=== PATIENT | male | born 1990 | race American Indian/Alaskan Native ===

== ENCOUNTER 2020-12-17 09:29 | Emergency (ER) | payer SELFPAY ==
[2020-12-17 09:45] VITALS: BP 138/91
--- NOTE | 2020-12-17 10:05 | Emergency Department Report ---
Minor Respiratory - HPI Chief Complaint: Headache Stated Complaint: HEADACHES Time Seen by Provider: 12/17/20 10:01 Duration: 3 Days Pain Location: Facial, Throat, Nose, Ear Severity: mild Minor Respiratory: Yes Rhinorrhea, Yes Sore Throat, Yes Able to Tolerate Fluids, Yes Ear Pain, No Cough, No Sick Contacts, No Hemoptysis, No Chest Pain, No Shortness of Breath, No Fever Other History: Patient is a 30-year-old that comes to the emergency room with a left-sided headache, left subconjunctival hemorrhage after sneezing, and ear pressure. He denies shortness of breath or chest pain. He denies fever or chills. Patient is ambulatory nontoxic and [id number] on arrival to ER. ED Review of Systems ROS: Stated complaint: HEADACHES Other details as noted in HPI Comment: All other systems reviewed and negative ED Past Medical Hx - Past Medical History Previous Medical History?: Yes Hx Hypertension: Yes - Surgical History Past Surgical History?: No - Family History Family history: no significant - Social History Smoking Status: Never Smoker Substance Use Type: Alcohol - Medications Home Medications: Home Medications Medication Instructions Recorded Confirmed Last Taken Type Amoxicillin [Trimox CAP] 500 mg PO BID #20 capsule 12/17/20 Unknown Rx Fluticasone [Flonase] 1 spray NS QDAY #1 bottle 12/17/20 Unknown Rx predniSONE [Deltasone] 20 mg PO DAILY #5 tablet 12/17/20 Unknown Rx Minor Respiratory Exam - Exam General: Vital signs noted. No distress. Alert and acting appropriately. HEENT: Yes Pharyngeal Erythema, Yes Moist Mucous Membranes, Yes Frontal Tenderness, Yes Maxillary Tenderness, No Pharyngeal Exudates, No Rhinorrhea, No Conjuctival Injection Ear: Left TM Erythema, Neither TM Bulge, Neither EAC Discharge Neck: Yes Supple, No Adenopathy Lungs: Yes Good Air Exchange, No Wheezes, No Ronchi, No Stridor, No Cough, No Labored Respirations, No Retractions, No Use of Accessory Muscles, No Other Abnormal Lung Sounds Heart: Yes Regular, No Murmur Abdomen: Yes Normal Bowel Sounds, No Tenderness, No Peritoneal Signs Skin: No Rash, No Edema Neurologic: Alert and oriented, no deficits. Musculoskeletal: Unremarkable. ED Course Vital Signs 12/17/20 09:44 Temperature 98.6 F Pulse Rate 79 Respiratory 20 Rate Blood Pressure 138/91 O2 Sat by Pulse 99 Oximetry ED Medical Decision Making - Medical Decision Making Vital Signs 12/17/20 09:44 Temperature 98.6 F Pulse Rate 79 Respiratory 20 Rate Blood Pressure 138/91 O2 Sat by Pulse 99 Oximetry Patient reports and his exam is consistent with sinusitis. He has maxillary and frontal left-sided tenderness. No cough or shortness of breath. No chest pain. Vital signs normal. No fever or chills. Taking p.o. Ambulatory [id number] in triage. Patient be discharged home with discharge plan of care including medications, follow-up and activity and diet. He verbalizes understanding of discharge plan of care. - Differential Diagnosis uri Critical care attestation.: If time is entered above; I have spent that time in minutes in the direct care of this critically ill patient, excluding procedure time. ED Disposition Clinical Impression: Sinusitis, Subconjunctival hemorrhage Disposition: TO HOME OR SELFCARE Is pt being admited?: No Does the pt Need Aspirin: No Condition: Stable Instructions: Sinusitis, Adult, [id number] Additional Instructions: stay well hydrated do not rub eye meds as ordered motrin or tylenol for pain follow up with pcp next week referral below Prescriptions: predniSONE [Deltasone] 20 mg PO DAILY #5 tablet Fluticasone [Flonase] 1 spray NS QDAY #1 bottle Amoxicillin [Trimox CAP] 500 mg PO BID #20 capsule Referrals: CHIQUI ARGUETA MD [Staff Physician] - 3-5 Days Forms: Work/School Release Form(ED) Time of Disposition: 10:04
== END 2020-12-17 10:05 | disposition home or self-care (01) ==
LOC: ED 09:29
DX: H11.30 Conjunctival hemorrhage, unspecified eye (principal); J32.9 Chronic sinusitis, unspecified; I10 Essential (primary) hypertension; Z79.899 Other long term (current) drug therapy
CPT/HCPCS: 99282

== ENCOUNTER 2021-04-09 10:14 | Emergency (ER) | payer MEDICAID ==
[2021-04-09 10:20] VITALS: BP 141/94
--- NOTE | 2021-04-09 10:29 | Emergency Department Report ---
ED General Adult HPI - General Chief complaint: Headache Stated complaint: POSSIBLE SINUS INFECTION Time Seen by Provider: 04/09/21 10:19 Source: patient Mode of arrival: Ambulatory Limitations: No Limitations - History of Present Illness Initial comments: 31-year-old male patient with history of hypertension presents emergency department with complaints of sinus pressure and nasal congestion for approximately a week and a half. Patient experienced similar symptoms a couple of months ago. No known sick contacts. No current steroid or antibiotic use. Patient has been taking Sudafed with limited relief. He does not have a primary care provider. Denies fever, chills, sore throat, cough, neck stiffness, shortness of breath, vomiting. Denies all other complaints at this time. - Related Data Previous Rx's Medication Instructions Recorded Last Taken Type Amoxicillin [Trimox CAP] 500 mg PO BID #20 capsule 12/17/20 Unknown Rx Fluticasone [Flonase] 1 spray NS QDAY #1 bottle 12/17/20 Unknown Rx predniSONE [Deltasone] 20 mg PO DAILY #5 tablet 12/17/20 Unknown Rx Fluticasone [Flonase] 1 spray NS QDAY #1 bottle 04/09/21 Unknown Rx guaiFENesin/DEXTROMETHORPHAN 1 each PO Q6H #20 capsule 04/09/21 Unknown Rx [Coricidin Hbp Chest Harvey-Cough] Allergies Allergy/AdvReac Type Severity Reaction Status Date / Time No Known Allergies Allergy Verified 12/17/20 09:40 ED Review of Systems ROS: Stated complaint: POSSIBLE SINUS INFECTION Other details as noted in HPI Other: GENERAL: Negative for fever. ENT: Positive for sinus pressure and nasal congestion. CARDIOVASCULAR: Negative for chest pain. PULMONARY: Negative for shortness of breath. GASTROINTESTINAL: Negative for abdominal pain. MUSCULOSKELETAL: Negative for back pain. NEUROLOGICAL: Negative for headache. INTEGUMENTARY: Negative for rash. ED Past Medical Hx - Past Medical History Previous Medical History?: Yes Hx Hypertension: Yes - Surgical History Additional Surgical History: APPY - Social History Smoking Status: Never Smoker Substance Use Type: Alcohol - Medications Home Medications: Home Medications Medication Instructions Recorded Confirmed Last Taken Type Amoxicillin [Trimox CAP] 500 mg PO BID #20 capsule 12/17/20 Unknown Rx Fluticasone [Flonase] 1 spray NS QDAY #1 bottle 12/17/20 Unknown Rx predniSONE [Deltasone] 20 mg PO DAILY #5 tablet 12/17/20 Unknown Rx Fluticasone [Flonase] 1 spray NS QDAY #1 bottle 04/09/21 Unknown Rx guaiFENesin/DEXTROMETHORPHAN 1 each PO Q6H #20 capsule 04/09/21 Unknown Rx [Coricidin Hbp Chest Harvey-Cough] ED Physical Exam - General Limitations: No Limitations - Other Other exam information: General: Awake and alert. No acute distress. Head: Atraumatic, normocephalic. Bilateral maxillary sinus tenderness. Eyes: EOMI. Pupils are equal and round. Normal sclera and conjunctiva. ENT: Oral mucosa is moist. Normal pharyngeal exam. Neck: Supple. No lymphadenopathy. Pulmonary: No respiratory distress. Clear to auscultation bilaterally. Cardiac: Tachycardic. Pulses are palpable and equal bilaterally. No lower extremity cyanosis or edema. Skin: Warm and dry. No rashes. Abdomen: Soft, non-tender, non-protuberant. No guarding, rigidity, or rebound. Bowel sounds are normal. No organomegaly or masses noted. Back: Normal alignment. No CVA tenderness. Extremities: Symmetrical. Full range of motion intact. Neurological: Alert and oriented, appropriately interactive, no focal deficits. Psych: Cooperative. Appropriate mood and affect. Speech is evenly metered. Thoughts are logically construed. ED Course Vital Signs 04/09/21 10:19 Temperature 98.9 F Pulse Rate 107 H Respiratory 18 Rate Blood Pressure 141/94 O2 Sat by Pulse 98 Oximetry ED Medical Decision Making - Medical Decision Making Differential diagnosis including but not limited to: sinusitis, pharyngitis, periorbital/orbital cellulitis, otitis media Patient presents emergency department with complaints of sinus pressure and nasal congestion. He is afebrile. Minimally tachycardic on arrival; patient states he has been taking Sudafed for symptomatic relief. No hypoxia, no respiratory distress. No clinical evidence to suggest airway obstruction or systemic bacterial infection warranting further diagnostic work-up on an emergent basis at this time. Based on symptom duration of less than 3 weeks, patient does not meet criteria for antibiotics at this time. He will be discharged home with appropriate symptomatic treatment and advised to follow-up with primary care provider. Advised to discontinue Sudafed in the setting of hypertension. Patient expressed understanding and is agreeable to plan of care. Disease transmission precautions discussed. Strict return precautions provided. History, exam, diagnostic testing, and current condition do not suggest worrisome pathology to warrant further testing, continued ED treatment, admission, or surgical evaluation at this point. Given the low probability of a significant medical illness, it would be more likely to result in harm than benefit to perform further testing at this stage. Discussed findings, presumptive diagnosis, need for follow-up and specific signs/symptoms that should prompt immediate return to the emergency department. Instructions were explained in detail to the patient in addition to giving written discharge information. Patient expressed understanding and was given the opportunity to ask questions, all of which were satisfactorily answered prior to discharge home. Critical care attestation.: If time is entered above; I have spent that time in minutes in the direct care of this critically ill patient, excluding procedure time. ED Disposition Clinical Impression: Maxillary sinusitis Qualifiers: Chronicity: acute Recurrence: recurrent Qualified Code(s): J01.01 - Acute recurrent maxillary sinusitis Disposition: TO HOME OR SELFCARE Is pt being admited?: No Does the pt Need Aspirin: No Condition: Stable Instructions: Sinusitis, Adult, [id number] Additional Instructions: Take Tylenol every 4 hours and Motrin every 8 hours as needed for pain. Take Coricidin as directed. Use Flonase as directed. Rest. Drink plenty fluids. Wash hands frequently to prevent disease transmission. Do not share food or drinks with others. Follow-up with primary care provider this week. Call today to schedule appointment. See referral information below. Return to the emergency department immediately for new or worsening symptoms. Prescriptions: guaiFENesin/DEXTROMETHORPHAN [Coricidin Hbp Chest Harvey-Cough] 1 each PO Q6H #20 capsule Fluticasone [Flonase] 1 spray NS QDAY #1 bottle Referrals: CHIQUI ARGUETA MD [Staff Physician] - 3-5 Days [facility] [Provider Group] - 3-5 Days [facility] [Outside] - 3-5 Days [facility] [Outside] - 3-5 Days [facility] [Outside] - 3-5 Days Time of Disposition: 10:29
== END 2021-04-09 11:10 | disposition home or self-care (01) ==
LOC: ED 10:14
DX: J32.0 Chronic maxillary sinusitis (principal); I10 Essential (primary) hypertension; Z98.890 Other specified postprocedural states; Z79.899 Other long term (current) drug therapy
CPT/HCPCS: 99281

== ENCOUNTER 2021-05-12 16:08 | Emergency (ER) | payer SELFPAY ==
[2021-05-12 18:21] VITALS: BP 119/93
== END 2021-05-12 19:45 | disposition left against medical advice (07) ==
LOC: ED 16:08
DX: R09.81 Nasal congestion (principal); Z53.21 Procedure and treatment not carried out due to patient leaving prior to being seen by health care provider

== ENCOUNTER 2021-05-15 07:46 | Emergency (ER) | payer MEDICAID ==
[2021-05-15 07:53] VITALS: BP 136/100
--- NOTE | 2021-05-15 09:15 | Emergency Department Report ---
Minor Respiratory - HPI Chief Complaint: Upper Respiratory Infection Stated Complaint: NASAL PAIN/CONGESTION Time Seen by Provider: 05/15/21 08:42 Duration: 2 weeks Pain Location: Facial Severity: mild Minor Respiratory: Yes Rhinorrhea, Yes Able to Tolerate Fluids, No Sore Throat, No Ear Pain, No Cough, No Sick Contacts, No Hemoptysis, No Chest Pain, No Shortness of Breath, No Fever Other History: This is a 31-year-old male nontoxic, well nourished in appearance, no acute signs of distress presents to the ED with c/o of acute on chronic intermittent maxillary sinus pain, rhinorrhea, nasal congestion x2 2 weeks. Patient denies any cough. Denies any other symptoms or complaints. Patient denies any sick contact. Patient denies any recent travels, long car, recent hospital stays. Patient denies any calf pain or calf tenderness. Patient denies any chest pain, short of breath, fever, chills, nausea, vomiting, hemoptysis, numbness, tingling, headache or stiff neck. Denies any allergies. Past medical history includes hypertension which he says does not take medication for but does lifestyle modification. ED Review of Systems ROS: Stated complaint: NASAL PAIN/CONGESTION Other details as noted in HPI Comment: All other systems reviewed and negative Constitutional: denies: chills, fever Eyes: denies: eye pain, eye discharge, vision change ENT: congestion. denies: ear pain, throat pain Respiratory: denies: cough, shortness of breath, wheezing Cardiovascular: denies: chest pain, palpitations Endocrine: no symptoms reported Gastrointestinal: denies: abdominal pain, nausea, diarrhea Genitourinary: denies: urgency, dysuria Musculoskeletal: denies: back pain, joint swelling, arthralgia Skin: denies: rash, lesions Neurological: denies: headache, weakness, paresthesias Psychiatric: denies: anxiety, depression Hematological/Lymphatic: denies: easy bleeding, easy bruising ED Past Medical Hx - Past Medical History Hx Hypertension: Yes - Surgical History Additional Surgical History: APPY - Social History Smoking Status: Never Smoker Substance Use Type: Alcohol - Medications Home Medications: Home Medications Medication Instructions Recorded Confirmed Last Taken Type Amoxicillin [Trimox CAP] 500 mg PO BID #20 capsule 12/17/20 Unknown Rx Fluticasone [Flonase] 1 spray NS QDAY #1 bottle 12/17/20 Unknown Rx predniSONE [Deltasone] 20 mg PO DAILY #5 tablet 12/17/20 Unknown Rx Fluticasone [Flonase] 1 spray NS QDAY #1 bottle 04/09/21 Unknown Rx guaiFENesin/DEXTROMETHORPHAN 1 each PO Q6H #20 capsule 04/09/21 Unknown Rx [Coricidin Hbp Chest Harvey-Cough] Amoxicillin/K Clav Tab [Augmentin 1 tab PO Q12HR #20 tab 05/15/21 Unknown Rx 875 mg] Minor Respiratory Exam - Exam General: Vital signs noted. No distress. Alert and acting appropriately. Positive sinus tenderness noted. HEENT: Yes Moist Mucous Membranes, Yes Rhinorrhea, No Pharyngeal Erythema, No Pharyngeal Exudates, No Conjuctival Injection, No Frontal Tenderness, No Maxillary Tenderness Ear: Neither TM Bulge, Neither TM Erythema, Neither EAC Pain, Neither EAC Discharge Neck: Yes Supple, No Adenopathy Lungs: Yes Good Air Exchange, No Wheezes, No Ronchi, No Stridor, No Cough, No Labored Respirations, No Retractions, No Use of Accessory Muscles, No Other Abnormal Lung Sounds Heart: Yes Regular, No Murmur Abdomen: Yes Normal Bowel Sounds, No Tenderness, No Peritoneal Signs Skin: No Rash, No Edema Neurologic: Alert and oriented, no deficits. Musculoskeletal: Unremarkable. ED Course Vital Signs 05/15/21 07:53 Temperature 98.5 F Pulse Rate 88 Respiratory 20 Rate Blood Pressure 136/100 O2 Sat by Pulse 99 Oximetry - Reevaluation(s) Reevaluation #1: 05/15/21 09:20 Patient is speaking in full sentences with no signs of distress noted. ED Medical Decision Making - Medical Decision Making This is a 31-year-old male that presents with sinusitis. Patient is stable and was examined by me. Patient will be treated with Augmentin. Patient was instructed to keep a daily diary of blood pressure and presented to primary care doctor for possible blood pressure medication if not controlled with lifestyle modification. According to ACEP: (1) in ED patients with asymptomatic markedly elevated blood pressure, routine screening for acute target organ injury (eg, serum creatinine, urinalysis, ECG) is not required. (1) In patients with asymptomatic markedly elevated blood pressure, routine ED medical intervention is not required. Vitals stable. Patient is nonfebrile and normal heart rate. Patient was instructed Follow-up with a primary care doctor in 3-5 days or if symptoms worsen and continue return to emergency room as soon as possible. At time time of discharge, the patient does not seem toxic or ill in appearance. No acute signs of distress noted. Patient agrees to discharge treatment plan of care. No further questions noted by the patient. Critical care attestation.: If time is entered above; I have spent that time in minutes in the direct care of this critically ill patient, excluding procedure time. ED Disposition Clinical Impression: Sinusitis Qualifiers: Sinusitis location: maxillary Chronicity: subacute Qualified Code(s): J01.00 - Acute maxillary sinusitis, unspecified Disposition: TO HOME OR SELFCARE Is pt being admited?: No Does the pt Need Aspirin: No Condition: Stable Instructions: Sinusitis, Adult, [id number] Additional Instructions: Follow-up with a primary care doctor in 3-5 days or if symptoms worsen and continue return to emergency room as soon as possible. Prescriptions: Amoxicillin/K Clav Tab [Augmentin 875 mg] 1 tab PO Q12HR #20 tab Referrals: PRIMARY CAREMD [Referring] - 3-5 Days CHIQUI ARGUETA MD [Staff Physician] - 3-5 Days Forms: Work/School Release Form(ED) Time of Disposition: 09:40
== END 2021-05-15 10:04 | disposition home or self-care (01) ==
LOC: ED 07:46
DX: J01.00 Acute maxillary sinusitis, unspecified (principal); I10 Essential (primary) hypertension; Z79.899 Other long term (current) drug therapy
CPT/HCPCS: 99282

== ENCOUNTER 2021-10-27 08:47 | Emergency (ER) | payer MEDICAID ==
[2021-10-27 08:52] VITALS: BP 119/82
--- NOTE | 2021-10-27 10:57 | Emergency Department Report ---
- General Chief Complaint: Sore Throat Stated Complaint: ST, Watery Stool Time Seen by Provider: 10/27/21 10:27 Source: patient Mode of arrival: Ambulatory Limitations: No Limitations - History of Present Illness Initial Comments: Patient is a 31-year-old female presents emergency room with complaints of sore throat that began 3 days ago. Patient has associated cough with clear mucus production, congestion, voice hoarseness. She denies any fever, vomiting, shortness of breath, difficulty swallowing, chest pain. Past medical history of hyperthyroidism. No allergies to medications. - Related Data Previous Rx's Medication Instructions Recorded Last Taken Type Amoxicillin [Trimox CAP] 500 mg PO BID #20 capsule 12/17/20 Unknown Rx Fluticasone [Flonase] 1 spray NS QDAY #1 bottle 12/17/20 Unknown Rx predniSONE [Deltasone] 20 mg PO DAILY #5 tablet 12/17/20 Unknown Rx Fluticasone [Flonase] 1 spray NS QDAY #1 bottle 04/09/21 Unknown Rx guaiFENesin/DEXTROMETHORPHAN 1 each PO Q6H #20 capsule 04/09/21 Unknown Rx [Coricidin Hbp Chest Harvey-Cough] Amoxicillin/K Clav Tab [Augmentin 1 tab PO Q12HR #20 tab 05/15/21 Unknown Rx 875 mg] Allergies Allergy/AdvReac Type Severity Reaction Status Date / Time No Known Allergies Allergy Verified 05/15/21 07:50 ED Review of Systems ROS: Stated complaint: ST, Watery Stool Other details as noted in HPI Comment: All other systems reviewed and negative ED Past Medical Hx - Past Medical History Hx Hypertension: Yes - Surgical History Additional Surgical History: APPY - Social History Smoking Status: Never Smoker Substance Use Type: Alcohol - Medications Home Medications: Home Medications Medication Instructions Recorded Confirmed Last Taken Type Amoxicillin [Trimox CAP] 500 mg PO BID #20 capsule 12/17/20 Unknown Rx Fluticasone [Flonase] 1 spray NS QDAY #1 bottle 12/17/20 Unknown Rx predniSONE [Deltasone] 20 mg PO DAILY #5 tablet 12/17/20 Unknown Rx Fluticasone [Flonase] 1 spray NS QDAY #1 bottle 04/09/21 Unknown Rx guaiFENesin/DEXTROMETHORPHAN 1 each PO Q6H #20 capsule 04/09/21 Unknown Rx [Coricidin Hbp Chest Harvey-Cough] Amoxicillin/K Clav Tab [Augmentin 1 tab PO Q12HR #20 tab 05/15/21 Unknown Rx 875 mg] ED Physical Exam - General Limitations: No Limitations General appearance: alert, in no apparent distress - Head Head exam: Present: atraumatic, normocephalic - Eye Eye exam: Present: normal appearance - ENT ENT exam: Present: normal orophraynx, mucous membranes moist, other (No tonsillar hypertrophy or exudates, uvula is midline, no uvular edema or deviation, no trismus, no tongue elevation, no muffled voice, mild voice hoarseness) - Neck Neck exam: Absent: thyromegaly - Respiratory Respiratory exam: Present: normal lung sounds bilaterally. Absent: respiratory distress, wheezes, rales, rhonchi, stridor, chest wall tenderness, accessory muscle use, decreased breath sounds, prolonged expiratory - Cardiovascular Cardiovascular Exam: Present: regular rate, normal rhythm - Neurological Exam Neurological exam: Present: alert, oriented X3 - Psychiatric Psychiatric exam: Present: normal affect, normal mood - Skin Skin exam: Present: warm, dry, intact ED Course Vital Signs 10/27/21 08:49 Temperature 98.4 F Pulse Rate 80 Respiratory 16 Rate Blood Pressure 119/82 [Right] O2 Sat by Pulse 100 Oximetry Critical care attestation.: If time is entered above; I have spent that time in minutes in the direct care of this critically ill patient, excluding procedure time. ED Disposition Condition: Stable Referrals: PRIMARY CARE, [Primary Care Provider] - 3-5 Days
--- NOTE | 2021-10-27 11:59 | Emergency Department Report ---
Blank Doc - Documentation Documentation: This is the wrong patient encounter, I did not evaluate this patient, this pat ient was not seen by me
== END 2021-10-27 12:10 | disposition home or self-care (01) ==
LOC: ED 08:47
DX: R19.7 Diarrhea, unspecified (principal); Z53.21 Procedure and treatment not carried out due to patient leaving prior to being seen by health care provider
CPT/HCPCS: 87116; 87430

== ENCOUNTER 2021-10-27 13:47 | Emergency (ER) | payer MEDICAID | END 2021-10-27 13:50 | disposition left against medical advice (07) | LOC: ED 13:47 | DX: Z53.21 Procedure and treatment not carried out due to patient leaving prior to being seen by health care provider (principal) ==

== ENCOUNTER 2021-11-21 15:32 | Emergency (ER) | payer MEDICAID | END 2021-11-21 15:35 | disposition left against medical advice (07) | LOC: ED 15:32 | DX: R68.89 Other general symptoms and signs (principal); Z53.21 Procedure and treatment not carried out due to patient leaving prior to being seen by health care provider ==